=== PATIENT | female | born 1960 | race Caucasian/White ===

== ENCOUNTER 2022-07-27 17:20 | Outpatient (CLI) | payer OTHER, SELFPAY ==
--- NOTE | ~2022-07-27 | MM_ITS ---
EXAMINATION: MM screening matilda BI w rekha HISTORY: Screening mammogram TECHNIQUE: Craniocaudal and mediolateral oblique 3-D tomosynthesis images were obtained and synthetic 2-D images were generated. CAD analysis was submitted and interpreted. COMPARISON: 09/21/2018, 09/13/2017, 12/20/2014 bilateral screening mammogram examinations BREAST PARENCHYMAL COMPOSITION: The breasts are heterogeneously dense, which may obscure small masses . FINDINGS: There is no evidence of suspicious mass, calcification, or architectural distortion to sugg est malignancy in either breast. There has been no suspicious interval change. IMPRESSION: 1. No mammographic evidence of malignancy. 2. Recommend routine screening mammography in one year. BI-RADS Category 1: Negative Reviewed, dictated and finalized at location A. 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
== END 2022-07-27 17:21 | disposition home or self-care (01) ==
PROVIDERS: PCP Family Medicine; Visit Provider Family Medicine
DX: Z12.31 Encounter for screening mammogram for malignant neoplasm of breast (principal)
CPT/HCPCS: 77063; 77067

== ENCOUNTER → 2023-02-18 14:25 | Outpatient (CLI) | payer OTHER, SELFPAY ==
--- NOTE | ~2023-02-18 | MR_ITS ---
EXAMINATION: MR shoulder RT wo con DATE: 02/18/2023 15:03 INDICATION: Right shoulder pain TECHNIQUE: Magnetic resonance imaging (MRI) of the right shoulder was performed without intravenous c ontrast. Sequences included axial PD-weighted FS FSE, coronal oblique PD-weighted FS FSE, coronal obl ique T2-weighted FS FSE, sagittal PD-weighted FS FSE, and sagittal T1-weighted SE. COMPARISON: None. FINDINGS: Coracoacromial arch: The acromion undersurface is curved in morphology (type II). The coracoacromial ligament is normal. M ild to moderate acromioclavicular osteoarthritis with tiny inferiorly directed osteophyte at the late ral head of the clavicle. Rotator cuff: Moderate supraspinatus and mild infraspinatus tendinopathy. There is a small full-thickness tear s[place] uring 3 mm AP and extending approximately 12 mm distally from the superior facet footplate of the pos terior supraspinatus tendon. Teres minor tendon is normal. Moderate subscapularis tendinopathy with t iny intrasubstance tear at the cephalad aspect of the lesser tuberosity footplate. There is mild fatt y atrophy of the cephalad aspect of the subscapularis muscle belly. Many of the rotator cuff musculat ure is normal. Biceps tendon, glenoid labrum and glenohumeral cartilage: There is a tear of the intra-articular course of the long head biceps tendon which is retracted below level of the intertubercular groove. Mild degeneration along the free edge of the 10:30 position of the posterosuperior glenoid labrum. Mild partial-thickness cartilage loss with smooth chondral surfac e at the cephalad aspect of the glenoid. Fluid: Small glenohumeral joint effusion with extension of a small amount of fluid across the full-thickness rotator cuff tear into the subacromial/subdeltoid bursa. No loose osteochondral bodies. Bones: Bone alignment is normal. Normal marrow signal with no fracture or pathologic marrow replacing proces s. There is cystic change at the lesser tuberosity footplate of the subscapularis tendon likely relat ed to chronic rotator cuff disease. IMPRESSION: 1. Mild to moderate rotator cuff tendinopathy with small full-thickness tear at the distal supraspina tus tendon. 2. Tiny intrasubstance tear at the lesser tuberosity insertion of the subscapularis tendon. 3. Minimal glenohumeral osteoarthritis with mild degeneration at the free edge of the posterosuperior labrum. 4. Mild to moderate acromioclavicular osteoarthritis. Reviewed, dictated and finalized at location A. IMPRESSION: 1. Mild to moderate rotator cuff tendinopathy with small full-thickness tear at the distal supraspinatus tendon. 2. Tiny intrasubstance tear at the lesser tuberosity insertion of the subscapul sarah tendon. 3. Minimal glenohumeral osteoarthritis with mild degeneration at the free edge of the posterosuperior labrum. 4. Mild to moderate acromioclavicular osteoarthritis.
== END ==
PROVIDERS: PCP Physician Assistant Medical; Visit Provider Physician Assistant Medical
DX: M19.011 Primary osteoarthritis, right shoulder (principal)
CPT/HCPCS: 73221

== ENCOUNTER 2024-03-27 08:27 | Outpatient (CLI) | payer OTHER, SELFPAY ==
--- NOTE | 2024-03-27 08:34 | EST_ITS ---
Patient Info Name: Caro Alegre Age: 63 years : 1960 Gender: Female Ht: 63 in Wt: 130 lbs BSA: 1.63 m2 HR: 57 bpm BP: 115 / 80 mmHg Exam Date: 03/27/2024 9:22 AM Exam Location: Echo Lab Patient Status: Outpatient Admit Date: 03/27/2024 Staff Ordering Physician: Bandar Whitlock DO Triage Nurse: Munira Waite RDCS Attending Provider: BANDAR WHITLOCK Referring Physician: Frandy KIMBALL; Exercise Technologist: Munira Waite RDCS Exercise Physician: Bandar Whitlock DO Exam Type: CA stress echo Study Info Indications R94.31 - Abnormal electrocardiogram ECG EKG Treadmill exercise stress echocardiogram is performed. Summary 1. 1. Negative Justin exercise stress test for ischemic ST changes by ECG criteria. 2. 2. Reduced functional capacity, achieving 7 METs of workload. 3. 3. Appropriate HR response to exercise. 4. 4. Appropriate HR recovery at 1 minute post exercise. 5. 5. Negative stress echocardiogram for ischemia by wall motion analysis. 6. 6. Patient informed of the above results. Stress Echo Findings Left Ventricle Appropriate increase in LV endocardial thickening with systole. Appropriate augmentation of contractility with systole. No wall motion abnormality. Left Ventricle Normal LV systolic function, no wall motion abnormality. Protocol: Justin Stress ECG Details Stage: REST Duration (min): 0 min : 57 sec Speed (mph): 0.0 Grade (%): 0 HR (bpm): 57 SBP (mmHg): 115 DBP (mmHg): 68 METS: --- Stage: REST Duration (min): 11 min : 36 sec Speed (mph): 0.0 Grade (%): 0 HR (bpm): 63 SBP (mmHg): 115 DBP (mmHg): 68 METS: --- Stage: STAGE 1 Duration (min): 1 min : 0 sec Speed (mph): 1.7 Grade (%): 10 HR (bpm): 114 SBP (mmHg): 115 DBP (mmHg): 68 METS: --- Stage: STAGE 1 Duration (min): 2 min : 0 sec Speed (mph): 1.7 Grade (%): 10 HR (bpm): 127 SBP (mmHg): 115 DBP (mmHg): 68 METS: --- Stage: STAGE 1 Duration (min): 3 min : 0 sec Speed (mph): 1.7 Grade (%): 10 HR (bpm): 132 SBP (mmHg): 161 DBP (mmHg): 94 METS: --- Stage: STAGE 2 Duration (min): 1 min : 0 sec Speed (mph): 2.5 Grade (%): 12 HR (bpm): 145 SBP (mmHg): 161 DBP (mmHg): 94 METS: --- Stage: STAGE 2 Duration (min): 2 min : 0 sec Speed (mph): 2.5 Grade (%): 12 HR (bpm): 151 SBP (mmHg): 204 DBP (mmHg): 93 METS: --- Stage: STAGE 2 Duration (min): 2 min : 1 sec Speed (mph): 0.0 Grade (%): 0 HR (bpm): 151 SBP (mmHg): 204 DBP (mmHg): 93 METS: --- Stage: RECOVERY Duration (min): 0 min : 58 sec Speed (mph): 0.0 Grade (%): 0 HR (bpm): 120 SBP (mmHg): 204 DBP (mmHg): 93 METS: --- Stage: RECOVERY Duration (min): 1 min : 58 sec Speed (mph): 0.0 Grade (%): 0 HR (bpm): 77 SBP (mmHg): 204 DBP (mmHg): 93 METS: --- Stage: RECOVERY Duration (min): 2 min : 58 sec Speed (mph): 0.0 Grade (%): 0 HR (bpm): 70 SBP (mmHg): 204 DBP (mmHg): 93 METS: ---
== END 2024-03-27 08:28 | disposition home or self-care (01) ==
LOC: ANHCARD 08:31
PROVIDERS: PCP Physician Assistant Medical; Visit Provider Internal Medicine Cardiovascular Disease
DX: R94.31 Abnormal electrocardiogram [ECG] [EKG] (principal)
CPT/HCPCS: 93351

== ENCOUNTER 2025-05-08 13:41 | Outpatient (CLI) | payer OTHER, SELFPAY ==
--- NOTE | ~2025-05-08 | MM_ITS ---
EXAMINATION: MM screening matilda BI w rekha HISTORY: Screening TECHNIQUE: Craniocaudal and mediolateral oblique 3-D tomosynthesis images were obtained and synthetic 2-D images were generated. CAD analysis was submitted and interpreted. COMPARISON: Comparison to multiple prior studies sequentially, with oldest reviewed study dated , 12/31/2011 BREAST PARENCHYMAL COMPOSITION: The breasts are heterogeneously dense, which may obscure small masses. FINDINGS: There is no evidence of suspicious mass, calcification, or architectural distortion to suggest malignancy in either breast. IMPRESSION: 1. No mammographic evidence of malignancy. 2. Recommend routine screening mammography in one year. BI-RADS Category 1: Negative Reviewed, dictated and finalized at location B. 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
--- OUTSIDE RECORDS SUMMARY | 2025-05-09 13:08 | XMS_ITS | Clinical Summary ---
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 Active traZODone (DESYREL) 100 MG tablet Take 1 tablet (100 mg total) by mouth nightly at bedtime. Active Active Problems Problem Noted Date Diagnosed Date Adhesive capsulitis of right shoulder 04/05/2023 Assessment & Plan (04/05/2023 12:08 PM CDT): Rotator cuff tear, right Adhesive capsulitis, right Bicipital tendonitis, and tears, right Recommendation at this time is to try a steroid injection. Continue with her non-steroidal anti-inflammatories. We will see her back in 6 weeks. Traumatic complete tear of right rotator cuff Assessment & Plan (07/12/2023 8:56 AM TABLE ATTENDANT): Recommendation at this time: went over the risks, benefits as well as the alternatives. Patient has failed to gain relief with more conservative treatments such as steroid injections, phsyical therapy and non-steroidal anti- inflammatories. Patient is wanting to proceed with the more definitive treatment of rotator cuff repair. Patient will be set up for rotator cuff repair of her right shoulder on 08/22/23. Assessment & Plan (05/16/2023 4:01 PM TABLE ATTENDANT): Recomendation at this time is to continue with her therapy and meloxicam. We'll see her in six weeks. Social History Tobacco Use Types Packs/Day Years Used Date Smoking Tobacco: Never Smokeless Tobacco: Never Tobacco Cessation:Counseling Given: No Comments No Sex and Gender Information Value Date Recorded Sex Assigned at Not on file Legal Sex Female 6:17 PM CDT Gender Identity Not on file Sexual Orientation Not on file Last Filed Vital Signs Vital Sign Reading Time Taken Comments Blood Pressure 109/66 07/11/2023 10:03 AM TABLE ATTENDANT Pulse 62 07/11/2023 10:03 AM TABLE ATTENDANT Temperature 36.2 C (97.1 F) 07/11/2023 10:03 AM TABLE ATTENDANT Respiratory Rate 18 07/11/2023 10:0 3 AM TABLE ATTENDANT Oxygen Saturation 98% 07/11/2023 10: 03 AM TABLE ATTENDANT Inhaled Oxygen Concentration - - Weight 62.5 kg (137 lb 12.8 oz) 024 10:03 AM TABLE ATTENDANT Height 161.3 cm (5' 3.5) 07/11/2023 10 :03 AM TABLE ATTENDANT Body Mass Index 24.03 07/11/2023 10:03 AM TABLE ATTENDANT Plan of Treatment Health Maintenance Due Date Last Done Comments Cervical Cancer Screening Pa p Smear (Age 30 to 64) Every 3 Years 1960 Colorectal Cancer Screening Colonoscopy (10 Years) 1960 Annual Physical 1965 Hepatitis C 1980 DTaP, Tdap and Td Vaccines ( 1 - Tdap) 1981 Cervical Cancer Screening Pa p with HPV Testing (Age 30 to 64) Every 5 Years 1992 Cervical Cancer Screening wi th HPV 1992 Mammogram Screening 2002 Pneumococcal Vaccine: 50+ Years (1 of 1 - PCV) 2012 Zoster Vaccines (1 of 2) 2012 PHQ-2 (Physician [place]) 07/04/2024 COVID-19 Vaccine (3 - 2024-2 6 season) 2025 10/08/2020, 09/10/2020 Influenza Adult (#1) 2025 RSV Immunization or 60+ Years (1 - 1-dose 75+ series) 2037 Hepatitis A Vaccines Aged Out No long er eligible based on patient's age to complete this topic Meningococcal B Vaccine Aged Out No l onger eligible based on patient's age to complete this topic Meningococcal Vaccine Aged Out No kika caro eligible based on patient's age to complete this topic RSV Immunizations Under 20 Months Aged Out No longer eligible b ased on patient's age to complete this topic Insurance [facility] [employer] [facility] Advance Directives Documents on File Type Date Recorded 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
== END 2025-05-08 13:42 | disposition home or self-care (01) ==
LOC: CHSIMG 13:43
PROVIDERS: PCP Physician Assistant Medical; Visit Provider Physician Assistant Medical
DX: Z12.31 Encounter for screening mammogram for malignant neoplasm of breast (principal)
CPT/HCPCS: 77063; 77067